=== PATIENT | female | born 1990 | race Caucasian/White ===

== ENCOUNTER 2017-04-02 14:30 | Emergency (ER) | payer BC, OTHER ==
[~2017-04-02] VITALS: Ht 165.1 cm; Wt 66.5 kg
[~2017-04-02 14:30] MED LIST: TRAM-10 PO
[2017-04-02 14:39] VITALS: TEMP 37.1; Ht 165.1 cm; Wt 66.5 kg
[2017-04-02] MEDS ORDERED: PRENTAB26 PO (15:35)
[2017-04-02] MEDS ORDERED: CLC/300 PO (15:35)
[2017-04-02] MEDS ORDERED: SODIUM CHLORIDE 0.9% 1000ML 1,000 ML IV ONE (15:43)
[2017-04-02] MEDS ORDERED: SODIUM CHLORIDE 0.9% 1000ML 1,000 ML IV STA (15:43)
[2017-04-02 16:48] LABS: BASO % 0.6 %; BASO ABS # 0.05 K/uL (0-0.2); COMPLETE YES; EOS % 1.6 %; HEMATOCRIT 43.9 % (37-47); IG% 0.2 %; LYMPH % 20.5 %; LYMPH ABS # 1.66 K/uL (1.2-3.4); MEAN CELL VOLUME 88.2 fL (80-100); MEAN CORPUSCULAR HEMOGLOBIN 30.9 pg (25-34); MEAN CORPUSCULAR HGB CONC 35.1 g/dl (32-36); MONO % 8.9 %; NEUT % 68.2 %; PLATELET COUNT 234 K/uL (130-400); RED BLOOD COUNT 4.98 M/uL (4.2-5.4); WHITE BLOOD COUNT 8.08 K/uL (4.8-10.8)
[2017-04-02 16:59] LABS: URINE APPEARANCE CLEAR (CLEAR); URINE BILIRUBIN NEG (NEG); URINE COLOR YELLOW; URINE NITRITE NEG (NEG); URINE SPECIFIC GRAVITY 1.006 (1.000-1.030); UROBILINOGEN NEG (NEG)
[2017-04-02 17:00] LABS: MANUAL MICROSCOPIC REQUIRED? YES; REVIEW REQ? NO
[2017-04-02 17:17] LABS: BLOOD UREA NITROGEN 6 mg/dl (7-18); BUN/CREATININE RATIO 7.1 (10-20); CALCIUM 8.8 mg/dl (8.5-10.1); CARBON DIOXIDE 22 mmol/L (21-32); CHLORIDE 106 mmol/L (98-107); CREATININE 0.77 mg/dl (0.60-1.20); GLUCOSE 87 mg/dl (70-99); SODIUM 136 mmol/L (136-145)
[2017-04-02 17:27] LABS: URINE BACTERIA NEG (NEG); URINE WBC 0 /hpf (0-5)
--- NOTE | 2017-04-02 18:45 | EMERGENCY ROOM VISIT NOTE ---
History Report prepared by Jose: Zahra Brown Under the Supervision of: Dr. Chet Murdock M.D. First contact with patient: 15:35 Chief Complaint: ED VAG BLEEDING Stated Complaint: BLEEDING WHILE 5 WKS 0 BLOOD TYPE History of Present Illness The patient is a 26 year old female who presents to the Emergency Room with complaints of constant vaginal bleeding for the past few hours. The patient took a home test 1 week ago that was positive. She estimates that she is about 5 weeks . Her LNMP was February 25. She is visiting her family from out of town and has not had an opportunity to follow-up with her ob-documentation liaison yet. She called their office today and was advised to come to the ED for further evaluation. The patient is . She had some light bleeding in the first trimester of her previous so she did not think much of her bleeding this morning. Throughout the day her bleeding became heavier and she started experiencing lower abdominal cramping and back pain. The patient stopped breast feeding her other child 3 weeks ago. She developed mastitis in her right breast and is currently taking clindamycin. Her blood type is O-. She rates her current pain as a 3/10 in severity. Source of History: patient Onset: a few hours ago Position: other (vagina) Symptom Intensity: 3/10 Quality: other (bleeding) Timing: constant Associated Symptoms: + abdominal pain, + back pain Review of Systems See HPI for pertinent positives & negatives. A total of 10 systems reviewed and were otherwise negative. Past Medical & Surgical Medical Problems: (1) Hx of penicillin allergy Old medical records were reviewed. Nurse's notes were reviewed and I agree with. Family History No pertinent history stated. Social History Smoking Status: Never Smoker Smokeless Tobacco Use: No Alcohol Use: none Marital Status: Housing Status: lives with significant other Occupation Status: unemployed Current/Historical Medications Scheduled Clindamycin HCl (Clindamycin HCl), 300 MG PO TID Multivit/Min/Iron/Fol Ac/Pren ( Vitamin), 1 TAB PO HS Allergies Coded Allergies: Penicillins (Unverified Allergy, Mild, GI UPSET, 04/02/17) Sulfa Antibiotics (Unverified Allergy, Unknown, "bumps, red dots everywhere", 04/02/17) Physical Exam Vital Signs Date Time Temp Pulse Resp B/P (MAP) Pulse Ox O2 Delivery O2 Flow Rate FiO2 04/02/17 19:58 76 16 126/64 99 04/02/17 18:06 79 20 128/83 100 Room Air 04/02/17 16:39 99 20 136/81 100 Room Air 04/02/17 14:39 37.1 101 18 131/79 100 Room Air Physical Exam General: Well developed well nourished non ill appearing young female in no acute distress, breathing comfortably on room air. Normal speech HEENT: Normal cephalic atraumatic. Pupils are equal round and reactive to light. Extraocular movements are intact. Oropharynx is pink with moist mucous membranes. No swelling of the mouth lips or tongue. Neck: Supple with a midline trachea. No meningeal signs or stiffness, no JVD or bruits. No Stridor. Chest: Clear to auscultation bilaterally. No wheezes or rhonchi. No increased work of breathing. Heart: regular rate and rhythm. Abdomen: Soft nontender, nondistended without rebound guarding or rigidity. Extremities: No cyanosis clubbing or edema. No calf tenderness or assymetry Spine/Back. Non tender to palpation. No CVA tenderness Skin: Good turgor without rashes. Neurologic exam: Cranial nerves two through 12 are intact. Motor and sensation are intact and symmetrical throughout. Medical Decision & Procedures Laboratory Results 04/02/17 16:35 Red Blood Count 4.98, Mean Corpuscular Volume 88.2, Mean Corpuscular Hemoglobin 30.9, Mean Corpuscular Hemoglobin Concent 35.1, Mean Platelet Volume 9.0, Neutrophils (%) (Auto) 68.2, Lymphocytes (%) (Auto) 20.5, Monocytes (%) (Auto) 8.9, Eosinophils (%) (Auto) 1.6, Basophils (%) (Auto) 0.6, Neutrophils # (Auto) 5.50, Lymphocytes # (Auto) 1.66, Monocytes # (Auto) 0.72, Eosinophils # (Auto) 0.13, Basophils # (Auto) 0.05 04/02/17 16:35 04/02/17 17:51 Test 04/02/17 00:00 04/02/17 16:35 04/02/17 17:51 Urine Color YELLOW Urine Appearance CLEAR (CLEAR) Urine pH 7.0 (4.5-7.5) Urine Specific [place] 1.006 (1.000-1.030) Urine Protein NEG (NEG) Urine Glucose (UA) NEG (NEG) Urine Ketones NEG (NEG) Urine Occult Blood 3+ (NEG) Urine Nitrite NEG (NEG) Urine Bilirubin NEG (NEG) Urine Urobilinogen NEG (NEG) Urine Leukocyte Esterase NEG (NEG) Urine WBC (Auto) /hpf (0-5) Urine RBC (Auto) /hpf (0-4) Urine Hyaline Casts (Auto) /lpf (0-5) Urine Epithelial Cells (Auto) /lpf (0-5) Urine Bacteria (Auto) (NEG) Urine RBC 5-10 /hpf (0-4) Urine WBC 0 /hpf (0-5) Urine Epithelial Cells 5-10 /lpf (0-5) Urine Bacteria NEG (NEG) Urine Test NEG (NEG) White Blood Count 8.08 K/uL (4.8-10.8) Red Blood Count 4.98 M/uL (4.2-5.4) Hemoglobin 15.4 g/dL (12.0-16.0) Hematocrit 43.9 % (37-47) Mean Corpuscular Volume 88.2 fL (80-100) Mean Corpuscular Hemoglobin 30.9 pg (25-34) Mean Corpuscular Hemoglobin Concent 35.1 g/dl (32-36) Platelet Count 234 K/uL (130-400) Mean Platelet Volume 9.0 fL (7.4-10.4) Neutrophils (%) (Auto) 68.2 % Lymphocytes (%) (Auto) 20.5 % Monocytes (%) (Auto) 8.9 % Eosinophils (%) (Auto) 1.6 % Basophils (%) (Auto) 0.6 % Neutrophils # (Auto) 5.50 K/uL (1.4-6.5) Lymphocytes # (Auto) 1.66 K/uL (1.2-3.4) Monocytes # (Auto) 0.72 K/uL (0.11-0.59) Eosinophils # (Auto) 0.13 K/uL (0-0.5) Basophils # (Auto) 0.05 K/uL (0-0.2) RDW Standard Deviation 40.9 fL (36.4-46.3) RDW Coefficient of Variation 12.8 % (11.5-14.5) Immature Granulocyte % (Auto) 0.2 % Immature Granulocyte # (Auto) 0.02 K/uL (0.00-0.02) Anion Gap 8.0 mmol/L (3-11) Est Creatinine Clear Calc Drug Dose 97.9 ml/min Estimated GFR () 121.8 Estimated GFR (Non- 105.1 BUN/Creatinine Ratio 7.1 (10-20) Calcium Level 8.8 mg/dl (8.5-10.1) Human Chorionic Gonadotropin, Quant 18 mIU/mL Laboratory studies as stated above per my review. Medications Administered Medications (Trade) Dose Ordered Sig/Himanshu Route Start Time Stop Time Status Last Admin Dose Admin Sodium Chloride 1,000 ml @ 999 mls/hr Q1H1M STAT IV 04/02/17 15:43 04/02/17 16:43 DC 04/02/17 16:38 999 MLS/HR Sodium Chloride 1,000 ml @ 150 mls/hr Q6H40M ONCE IV 04/02/17 15:43 04/02/17 22:22 04/02/17 16:38 150 MLS/HR ED Course 1535: Past medical records reviewed. The patient was evaluated in room B2, and a complete history and physical examination were performed. 1543: NSS 1000 ml @ 150 mls/hr IV, NSS 1000 ml @ 999 mls/hr IV 1649: I updated the patient. Her urine dip test was negative. Medical Decision Differential diagnoses includes , ectopic , infection, anemia. This patient comes in as described above. She is placed in room B2. She is here for treatment and evaluation of vaginal bleeding that started today. She had a urine test at home about a week ago that was positive. She has minimal lower abdominal cramping feels just like a period. She has no other complaints. IV access established her urine was negative here. I did do quantitative hCG was 18. She tells me she is Rh-. Blood type was obtained as well. She has no anemia. Her abdomen exam is benign. With her quantitative been 18, I suspect that she's had a very early miscarriage. It's also possible she had an early I do not think is likely ectopic at this point. I do think she'll need close following. She is from out of town. I did discuss this with [facility]EL[facility] and talked to Dr. Isabel. He felt that this could be erroneous intentionally even and she should have this rechecked in 2 days. He did not feel that she needed RhoGAM as it was very early on if she was and there is little mixing of maternal and blood.. I also talked to Dr. Garcia as when I talked to the blood bank initially, they reported both positive and negative O blood but ultimately resulted as O+. The patient believes she is no negative. She denies any recent transfusion or stem cell transplant. She's had no trouble with her blood getting typed in the past. I did discuss this with the patient. At this point this will not address change clerk as the D[facility] DEVELOPER doctor does not believe she needs RhoGAM anyways. I do think she needs close follow-up with her doctor. I do think she needs to return if she has increasing pain or bleeding, worsening of symptoms, any new problems or concerns also recommend she follow up in 2 days here for recheck. Medication Reconcilliation Current Medication List: was personally reviewed by me Blood Pressure Screening Patient's blood pressure: Normal blood pressure Impression Primary Impression: Vaginal bleeding Additional Impression: Elevated serum human chorionic gonadotropin (hCG) level Scribe Attestation The scribe's documentation has been prepared under my direction and personally reviewed by me in its entirety. I confirm that the note above accurately reflects all work, treatment, procedures, and medical decision making performed by me. Departure Information Referrals No Doctor, Assigned (PCP) Patient Instructions My [facility] Problem Qualifiers
[2017-04-02 19:58] VITALS: BP 126/64; PULSE 76; O2SAT 99
== END 2017-04-02 19:59 | disposition home or self-care (01) ==
LOC: C.EDB 14:34
DX: O02.81 Inappropriate change in quantitative human chorionic gonadotropin (hCG) in early pregnancy (principal); N93.9 Abnormal uterine and vaginal bleeding, unspecified